=== PATIENT | female | born 1975 | race Two or more races ===

== ENCOUNTER 2017-01-20 18:00 | Inpatient (IN) | payer OTHER ==
[~2017-01-20] VITALS: Ht 162.6 cm; Wt 79.4 kg
[~2017-01-20 18:00] MED LIST: BACL10TA PO; CITA-77 PO; PREG50CA PO
[2017-01-20 18:40] LABS: Basophils # (auto) 0.1 uL; Basophils % (auto) 1.1 % (0.0-2.0); Eosinophils # (auto) 0.2 uL; Eosinophils % (auto) 1.7 % (0.0-7.0); Hemoglobin 12.9 g/dL (12.2-16.2); Lymphocytes # (auto) 2.5 uL; Lymphocytes % (auto) 27.5 % (10.0-50.0); Mean Corpuscular Hemoglobin 30.9 pg (28.0-32.0); Mean Corpuscular Hgb Conc. 33.1 g/dL (32.0-36.0); Mean Corpuscular Volume 93.4 fL (80.0-100.0); Mean Platelet Volume 9.1 fL (6.9-10.8); Monocytes # (auto) 0.4 uL; Monocytes % (auto) 4.8 % (0.0-12.0); Neutrophils # (auto) 5.9 uL; Neutrophils % (auto) 64.9 % (37.0-80.0); Nucleated Red Blood Cells % 0.1 %; Platelet Count (auto) 320 10^3/uL (140-450); Red Cell Distribution Width 13.6 % (11.8-14.3); White Blood Cell 9.1 10^3/uL (4.4-10.8)
[2017-01-20 18:59] LABS: Urine Bilirubin Negative (Negative); Urine Blood Negative /uL (Negative); Urine Color Colorless (Yellow); Urine Glucose Normal (Normal); Urine Ketone Negative (Negative); Urine Nitrite Negative (Negative); Urine RBC <1 /hpf (0 - 4); Urine Squamous Epithelial Cell FEW /hpf (<5); Urine Urobilinogen Normal (Negative)
[2017-01-20 19:10] LABS: Albumin 3.3 g/dL (3.4-5.0); Calcium 8.5 mg/dL (8.5-10.1); Potassium 3.6 mmol/L (3.5-5.1)
[2017-01-20 19:12] LABS: Bilirubin, Total 0.3 mg/dL (0.2-1.0); Total Protein 7.3 g/dL (6.4-8.2)
[2017-01-21] MEDS ORDERED: FAMOTIDINE (10MG/ML) 2ML VL IV ONE
[2017-01-21] MEDS ORDERED: MORPHINE SULF INJ 2 MG/ML SYRINGE 1ML IV ONE
[2017-01-21] MEDS ORDERED: ONDANSETRON HCL 4 MG/2 ML VIAL IV ONE
[2017-01-21] MEDS ORDERED: SODIUM CHLORIDE 0.9% 1,000 ML IV ONE
[2017-01-21] MEDS ORDERED: SODIUM CHLORIDE 0.9% 1,000 ML IV SCH (05:46)
[2017-01-21] MEDS ORDERED: MORPHINE SULF INJ 2 MG/ML SYRINGE 1ML IV PRN (06:00)
[2017-01-21] MEDS ORDERED: ONDANSETRON HCL 4 MG/2 ML VIAL IV PRN (06:00)
[2017-01-21] MEDS ORDERED: HYDROcodone-ACET 5/325MG TAB PO PRN (06:00)
[2017-01-21] MEDS ORDERED: PANTOPRAZOLE 40 MG/10 ML VIAL IV ONE (06:00)
[2017-01-21] MEDS ORDERED: ACETAMINOPHEN 325 MG TAB PO PRN (06:00)
[2017-01-21] MEDS ORDERED: TEMAZEPAM 15 MG CAP PO PRN (06:00)
[2017-01-21] MEDS ORDERED: PANTOPRAZOLE 40 MG/10 ML VIAL IV SCH (10:00)
[2017-01-21] MEDS ORDERED: CITALOPRAM HYDROBR 20 MG TAB PO SCH (10:00)
[2017-01-21] MEDS ORDERED: PREGABALIN 25 MG CAP PO SCH (10:00)
[2017-01-21] MEDS ORDERED: ENOXAPARIN SOD 40 MG/0.4 ML SYRINGE SC SCH (10:00)
[2017-01-21 16:47] VITALS: BP 114/79
== END 2017-01-21 17:15 | disposition home or self-care (01) | DRG 391 ==
LOC: ER 18:00 → OVERFLOW 18:01 → WEST WING 01-21 14:24
PROVIDERS: ADMIT Nurse Practitioner; ATTEND Internal Medicine Geriatric Medicine
DX: K52.9 Noninfective gastroenteritis and colitis, unspecified (principal); K85.90 Acute pancreatitis without necrosis or infection, unspecified; K76.0 Fatty (change of) liver, not elsewhere classified; F41.9 Anxiety disorder, unspecified; K21.9 Gastro-esophageal reflux disease without esophagitis; M51.37 Other intervertebral disc degeneration, lumbosacral region; N20.0 Calculus of kidney; Z90.710 Acquired absence of both cervix and uterus; Z88.8 Allergy status to other drugs, medicaments and biological substances; Z91.012 Allergy to eggs
CPT/HCPCS: 36415; 74176; 80053; 81001; 81025; 83690; 85025; 94761; 96361; 96374; 96375; C9113; J2405; J3490